=== PATIENT | male | born 1990 | race Caucasian/White ===

== ENCOUNTER 2022-01-01 19:43 | Emergency (ER) | payer MEDICAID, OTHER ==
[~2022-01-01] VITALS: Ht 180.3 cm; Wt 90.9 kg
[~2022-01-01 19:43] MED LIST: GLYB-145 PO; INSLAN SQ
[2022-01-01] MEDS ORDERED: ATOR40TA28 PO (19:57)
[2022-01-01] MEDS ORDERED: INSLAN SQ (19:57)
[2022-01-01] MEDS ORDERED: INSU100V SQ (19:57)
[2022-01-01] MEDS ORDERED: EMPA10TA3 PO (19:57)
[2022-01-01 20:53] VITALS: BP 139/85
[2022-01-01] MEDS ORDERED: DOXY-354 PO (21:09)
== END 2022-01-01 21:40 | disposition home or self-care (01) ==
LOC: EMS 19:44
DX: T81.49XA Infection following a procedure, other surgical site, initial encounter (principal); X58.XXXA Exposure to other specified factors, initial encounter; E11.9 Type 2 diabetes mellitus without complications; E78.00 Pure hypercholesterolemia, unspecified; F12.90 Cannabis use, unspecified, uncomplicated; F17.210 Nicotine dependence, cigarettes, uncomplicated
CPT/HCPCS: 82962; 99283

== ENCOUNTER 2022-03-29 22:11 | Emergency (ER) | payer OTHER ==
[~2022-03-29] VITALS: Ht 180.3 cm; Wt 113.6 kg
[~2022-03-29 22:11] MED LIST changes: +ATOR40TA28 PO; +DOXY-354 PO; +EMPA10TA3 PO; -GLYB-145 PO; +INSU100V SQ
[2022-03-29 22:16] VITALS: BP 133/98
[2022-03-29 22:36] LABS: GLUCOMETER DEV NAME(LOC) ERT.5; GLUCOSE,POINT OF CARE 371 MG/DL (70-110)
[2022-03-29 22:45] LABS: COVID AG,FIA SOURCE NASAL SWAB
[2022-03-29 22:51] LABS: BASOPHILS % (AUTO) 0.4 % (0.0-2.0); EOSINOPHILS % (AUTO) 1.9 % (1.0-6.0); HEMATOCRIT 45.8 % (41-53); LYMPHOCYTES # (AUTO) 3.2 K/uL (1.0-4.8); LYMPHOCYTES % (AUTO) 28.7 % (22.0-44.0); MEAN CORPUSCULAR HEMOGLOBIN 28.1 pg (26.0-34.0); MEAN CORPUSCULAR HGB CONC 32.9 G/dL (31.0-37.0); MEAN CORPUSCULAR VOLUME 86 fL (80-100); MONOCYTES # (AUTO) 0.7 K/uL (0.1-1.0); MONOCYTES % (AUTO) 6.8 % (2.0-9.0); NEUTROPHILS # (AUTO) 6.8 K/uL (1.8-7.7); NEUTROPHILS % (AUTO) 62.2 % (40.0-70.0); PLATELET COUNT (AUTO) 347 K/uL (150-450); RED BLOOD CELL COUNT(AUTO) 5.35 MIL/uL (4.50-5.90)
[2022-03-29 23:01] LABS: CALCIUM, TOTAL 9.7 mg/dL (8.8-10.5); CREATININE 1.59 mg/dL (0.60-1.30); POTASSIUM 4.9 mmol/L (3.5-5.1)
[2022-03-29 23:02] LABS: RAPID GROUP A STREP NEGATIVE (NEGATIVE)
[2022-03-29 23:06] LABS: ALBUMIN 3.3 g/dL (3.4-5.0); BILIRUBIN,TOTAL 0.1 mg/dL (0.1-1.0); TOTAL PROTEIN, SERUM 7.7 g/dL (6.4-8.2)
[2022-03-29 23:07] LABS: INFLUENZA TYPE A NEGATIVE FOR TYPE A (NEGATIVE); INFLUENZA TYPE B NEGATIVE FOR TYPE B (NEGATIVE)
[2022-03-29] MEDS ORDERED: IBUP-2070 PO (23:32)
[2022-03-29] MEDS ORDERED: BENZ1LOZ77 PO (23:32)
== END 2022-03-29 23:38 | disposition home or self-care (01) ==
LOC: EMS 22:13
DX: J02.8 Acute pharyngitis due to other specified organisms (principal); E11.9 Type 2 diabetes mellitus without complications; E78.00 Pure hypercholesterolemia, unspecified; F17.210 Nicotine dependence, cigarettes, uncomplicated; F12.90 Cannabis use, unspecified, uncomplicated; Z20.822 Contact with and (suspected) exposure to COVID-19
CPT/HCPCS: 80053; 82962; 85025; 87430; 87804; 99283

== ENCOUNTER 2023-02-23 21:40 | Emergency (ER) | payer OTHER ==
[~2023-02-23] VITALS: Ht 180.3 cm; Wt 85.0 kg
[~2023-02-23 21:40] MED LIST changes: +BENZ1LOZ77 PO; +IBUP-1492 PO
[2023-02-23 21:53] VITALS: BP 136/86; PULSE 100; RESP 16; TEMP 98.5
== END 2023-02-23 22:21 | disposition home or self-care (01) ==
LOC: EMS 21:41
DX: Z53.21 Procedure and treatment not carried out due to patient leaving prior to being seen by health care provider (principal)
CPT/HCPCS: 99281; Z7502